=== PATIENT | female | born 1995 | race Caucasian/White ===

== ENCOUNTER 2016-12-09 21:29 | Emergency (ER) | payer OTHER ==
[~2016-12-09] VITALS: Ht 160 cm; Wt 45.0 kg
[~2016-12-09 21:29] MED LIST: MINASTRIN 24 F1 EACH PO; NOHOMEMEDS
[2016-12-09] MEDS ORDERED: KEFLEX500 MG PO (23:33)
[2016-12-09] MEDS ORDERED: KEFLEX250 MG/5 M PO (23:52)
[2016-12-10 00:23] VITALS: BP 133/75
== END 2016-12-10 00:25 | disposition home or self-care (01) ==
LOC: EME 21:29 → EXP 21:29
PROC: 2Y41X5Z Packing of Nasal Region using Packing Material (ICD-10-PCS; principal; 2016-12-09)
DX: R04.0 Epistaxis (principal); S02.2XXA Fracture of nasal bones, initial encounter for closed fracture; W54.1XXA Struck by dog, initial encounter; Z88.0 Allergy status to penicillin
CPT/HCPCS: 70160; 99281; 99284